=== PATIENT | female | born 1995 | race Two or more races ===

== ENCOUNTER 2018-12-12 15:27 | Outpatient (CLI) | payer SELFPAY | END 2018-12-12 15:28 | disposition EMS.NT | LOC: EMS 15:27 | PROVIDERS: ATTEND Surgery | DX: Z04.1 Encounter for examination and observation following transport accident (principal) ==

== ENCOUNTER 2018-12-12 16:41 | Emergency (ER) | payer OTHER ==
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
[2018-12-12] MEDS ORDERED: HYDROcod/ACETAM 5/325 MG TABLET PO STA ×2 (17:09→18:25)
[2018-12-12] MEDS ORDERED: METHOCARBAMOL 500 MG TABLET PO STA (17:09)
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
[2018-12-12] MEDS ORDERED: HYDROcod/ACET 5/325 Prepack 4 PO STA (18:25)
[2018-12-12 18:39] VITALS: BP 106/64
== END 2018-12-12 18:39 | disposition home or self-care (01) ==
LOC: ED 16:41
DX: S80.02XA Contusion of left knee, initial encounter (principal); S20.219A Contusion of unspecified front wall of thorax, initial encounter; S46.911A Strain of unspecified muscle, fascia and tendon at shoulder and upper arm level, right arm, initial encounter; S16.1XXA Strain of muscle, fascia and tendon at neck level, initial encounter; V49.50XA Passenger injured in collision with unspecified motor vehicles in traffic accident, initial encounter
CPT/HCPCS: 71046; 72040; 73030; 73564; 99283; A9270